=== PATIENT | male | born 1980 | race Native Hawaiian/Other Pacific Islander ===

== ENCOUNTER 2018-03-30 08:58 | Emergency (ER) | payer OTHER ==
[~2018-03-30] VITALS: Ht 167.6 cm; Wt 79.4 kg
[2018-03-30 09:00] VITALS: TEMP 98.7
[2018-03-30 09:57] VITALS: BP 118/78
== END 2018-03-30 09:58 | disposition home or self-care (01) ==
LOC: ED 08:58
PROC: 0HQFXZZ Repair Right Hand Skin, External Approach (ICD-10-PCS; principal; 2018-03-30)
DX: S61.411A Laceration without foreign body of right hand, initial encounter (principal); W45.8XXA Other foreign body or object entering through skin, initial encounter; Y92.69 Other specified industrial and construction area as the place of occurrence of the external cause
CPT/HCPCS: 99282; J7040

== ENCOUNTER 2018-04-06 18:16 | Emergency (ER) | payer OTHER ==
[~2018-04-06] VITALS: Ht 167.6 cm; Wt 79.4 kg
[2018-04-06 18:25] VITALS: BP 142/79; TEMP 98.2
== END 2018-04-06 18:44 | disposition home or self-care (01) ==
LOC: ED 18:16
DX: Z04.2 Encounter for examination and observation following work accident (principal)
CPT/HCPCS: 99282

== ENCOUNTER 2018-04-09 08:44 | Emergency (ER) | payer OTHER ==
[~2018-04-09] VITALS: Ht 167.6 cm; Wt 77.1 kg
[2018-04-09 08:45] VITALS: BP 144/87; TEMP 98.6
== END 2018-04-09 09:09 | disposition home or self-care (01) ==
LOC: ED 08:44
DX: Z48.02 Encounter for removal of sutures (principal)